=== PATIENT | female | born 1945 | race Caucasian/White ===

== ENCOUNTER 2020-09-08 09:51 | Emergency (ER) | payer MEDICARE, BC ==
[~2020-09-08] VITALS: Ht 160 cm; Wt 81.8 kg
[2020-09-08] MEDS ORDERED: aspirin 81mg tab.chew PO ONE (09:55)
[2020-09-08] MEDS ORDERED: normal saline 1000ML IV soln IVB ONE (09:55)
[2020-09-08] MEDS ORDERED: heparin 10,000 units/1 ML INJ IV ONE (10:05)
[2020-09-08] MEDS ORDERED: fentaNYL/PF 50MCG/1 ML 2ML syringe IV ONE (10:05)
[2020-09-08] MEDS ORDERED: ondansetron/PF 4mg/2ml inj IV ONE ×3 (10:05→11:50)
[2020-09-08] MEDS ORDERED: etomidate 2mg/ml inj. IV ONE (10:05)
[2020-09-08 10:33] LABS: BASOPHILS # (AUTO) 0.1 X10'3 (0-0.2); BASOPHILS % (AUTO) 0.7 % (0-1); EOSINOPHILS # (AUTO) 0.2 X10'3 (0-0.9); EOSINOPHILS % (AUTO) 2.8 % (0-6); HEMATOCRIT 44.5 % (35.0-45.0); LYMPHOCYTES # (AUTO) 1.5 X10'3 (1.1-4.8); LYMPHOCYTES % (AUTO) 18.1 % (21-51); MEAN CORPUSCULAR HEMOGLOBIN 28.7 PG (27.0-31.0); MEAN CORPUSCULAR HGB CONC 33.6 g/dL (33.0-36.5); MEAN CORPUSCULAR VOLUME 85.4 FL (78-98); MEAN PLATELET VOLUME 9.4 FL (7.4-10.4); MONOCYTES # (AUTO) 0.6 X10'3 (0-0.9); MONOCYTES % (AUTO) 7.8 % (2-12); NEUTROPHILS # (AUTO) 5.7 X10'3 (1.8-7.7); NEUTROPHILS % (AUTO) 70.6 % (42-75); PLATELET COUNT 208 X10'3 (140-440); RED BLOOD COUNT 5.21 X10'6 (4.20-5.60); RED CELL DISTRIBUTION WIDTH 14.3 % (11.5-14.5); WHITE BLOOD COUNT 8.1 X10'3 (4.5-11.0)
[2020-09-08 10:49] LABS: D-DIMER 0.29 MG/L FEU (0-0.50); PARTIAL THROMBOPLASTIN TIME 28 SECONDS (22-32)
[2020-09-08 10:52] LABS: ALANINE AMINOTRANSFERASE 27 U/L (12-78); ALBUMIN 3.9 G/DL (3.4-5.0); ALBUMIN/GLOBULIN RATIO 1.2 (1.1-1.5); ALKALINE PHOSPHATASE 72 IU/L (46-116); ANION GAP 8 (8-16); ASPARTATE AMINO TRANSFERASE 19 U/L (10-37); BILIRUBIN,TOTAL 0.8 MG/DL (0.1-1.0); BLOOD UREA NITROGEN 19 MG/DL (7-18); CALCIUM 9.6 MG/DL (8.5-10.1); CHLORIDE 103 MMOL/L (99-107); CREATININE 1.12 MG/DL (0.40-0.90); GLUCOSE 121 MG/DL (70-104); POTASSIUM 3.1 MMOL/L (3.5-5.1); SODIUM 141 MMOL/L (135-145); TOTAL CARBON DIOXIDE 29.7 MMOL/L (24-32); TOTAL PROTEIN 7.1 G/DL (6.4-8.2); eGFR 47 ML/MIN
[2020-09-08 11:02] LABS: MAGNESIUM 1.9 MG/DL (1.5-2.4)
[2020-09-08] MEDS ORDERED: amiodarone 150mg/dext, iso-os 100 ML IV ONE (11:05)
[2020-09-08 12:05] VITALS: BP 114/71
[2020-09-08] MEDS ORDERED: SOTA80TA PO (12:13)
[2020-09-08] MEDS ORDERED: APIX5TAB3 PO (12:13)
== END 2020-09-08 16:22 | disposition home or self-care (01) ==
LOC: ER 09:52
DX: I48.91 Unspecified atrial fibrillation (principal); R42 Dizziness and giddiness; I10 Essential (primary) hypertension; E78.00 Pure hypercholesterolemia, unspecified; Z79.899 Other long term (current) drug therapy
CPT/HCPCS: 36415; 71045; 80053; 83735; 83880; 84443; 84484; 85025; 85379; 85610; 85730; 92960; 93005; 94799; 96361; 96374; 96375; 96376; 99291; J1644; J2405; J3010; J7030; 94760; 96365; 99152; 99153; 99285